=== PATIENT | female | born 2000 | race Caucasian/White ===

== ENCOUNTER 2024-10-31 22:42 | Observation (INO) | payer MEDICAID ==
[2024-10-31] MEDS ORDERED: Morphine 2 MG/ML SYRINGE ONE (23:39)
[2024-10-31] MEDS ORDERED: Lactated Ringers 1,000 ML IV SCH (23:45)
[2024-11-01] MEDS: Lactated Ringers 1,000 ML IV ONE
[2024-11-01] MEDS: Morphine 2 MG/ML SYRINGE IVPUSH PRN ×2 (00:02→02:13)
[2024-11-01 00:12] LABS: BILIRUBIN,URINE NEGATIVE (NEGATIVE); COLOR,URINE YELLOW; GLUCOSE,URINE NEGATIVE (NEGATIVE); KETONES,URINE 40 mg/dL (NEGATIVE); LEUKOCYTE ESTERASE,URINE NEGATIVE (NEGATIVE); NITRITE,URINE NEGATIVE (NEGATIVE); OCCULT BLOOD,URINE TRACE-INTACT (NEGATIVE); PH,URINE 7.5 (5.0-8.0); PROTEIN,URINE NEGATIVE (NEGATIVE); UROBILINOGEN,URINE 0.2 EU/dL (<2.0)
[2024-11-01 00:15] LABS: APPEARANCE,URINE HAZY
[2024-11-01 00:16] LABS: BASOPHILS ABSOLUTE AUTO 0.02 K/uL (0.00-0.20); BASOPHILS PERCENT AUTO 0.2 % (0.0-1.0); EOSINOPHILS ABSOLUTE AUTO 0.06 K/uL (0.00-0.45); EOSINOPHILS PERCENT AUTO 0.5 % (0.0-6.0); HEMATOCRIT 32.5 % (37.0-47.0); HEMOGLOBIN 11.5 g/dL (12.0-16.0); IMMATURE GRAN ABSOLUTE AUTO 0.04 K/uL (0.00-0.05); IMMATURE GRAN PERCENT AUTO 0.3 % (0.0-0.4); LYMPHOCYTES ABSOLUTE AUTO 2.04 K/uL (1.00-4.80); LYMPHOCYTES PERCENT AUTO 17.1 % (24.0-44.0); MEAN CORPUSCULAR HEMOGLOBIN 30.2 pg (28.0-32.0); MEAN CORPUSCULAR HGB CONC 35.4 g/dL (32.0-36.0); MEAN CORPUSCULAR VOLUME 85.3 fL (83.0-99.0); MEAN PLATELET VOLUME 9.3 fL (9.4-12.3); MONOCYTES ABSOLUTE AUTO 0.67 K/uL (0.00-0.80); MONOCYTES PERCENT AUTO 5.6 % (0.0-8.0); NEUTROPHILS PERCENT AUTO 76.3 % (41.0-71.0); PLATELET COUNT,PLT 284 K/uL (150-400); RED BLOOD CELL COUNT 3.81 M/uL (4.10-5.30); WHITE BLOOD CELL COUNT,WBC 11.93 K/uL (3.9-11.3)
[2024-11-01 00:44] LABS: A/G RATIO 0.6 (0.9-1.6); ALBUMIN 2.8 g/dL (3.4-5.0); BILIRUBIN TOTAL 0.3 mg/dL (0.2-1.0); CARBON DIOXIDE,CO2 22.6 mmol/L (21.0-32.0); CREATININE 0.7 mg/dL (0.6-1.0); EST CRCL DRUG DOSING (CG) 118.01 mL/min; POTASSIUM,K 3.4 mmol/L (3.5-5.1); PROTEIN TOTAL,TP 7.2 g/dL (6.4-8.2)
[2024-11-01] MEDS ORDERED: Morphine 2 MG/ML SYRINGE IVPUSH PRN (01:23)
[2024-11-01] MEDS: Ondansetron 4 MG/2 ML SDV IVPUSH PRN (02:13)
[2024-11-01] MEDS ORDERED: Naloxone 0.4 MG/ML SDV IVPUSH PRN (06:43)
[2024-11-01] MEDS: Promethazine 25 MG/ML SDV IM PRN (07:17)
[2024-11-01] MEDS: Meperidine PF 25 MG/ML SDV IM SCH ×2 (07:59→14:11)
[2024-11-01] MEDS: Tamsulosin 0.4 MG Cap.ER PO SCH (11:37)
[2024-11-01] MEDS: Lactated Ringers 1,000 ML IV SCH (18:35)
[2024-11-02] MEDS ORDERED: Ondansetron 4 MG Tab PO PRN (11:09)
[2024-11-02] MEDS ORDERED: Acetaminophen/oxyCODONE 325-5 MG Tab PO PRN (11:09)
[2024-11-02] MEDS ORDERED: Glucagon,Human Recombinant 1 MG Vial IM PRN (11:13)
[2024-11-02] MEDS ORDERED: 50% Dextrose in Water 50 ML Syringe IVPUSH PRN (11:13)
[2024-11-02] MEDS ORDERED: Insulin Regular in 0.9 % NACL 100 ML IV SCH (11:15)
[2024-11-02] MEDS ORDERED: Dextrose 5%-Lactated Ringers 1,000 ML IV SCH (11:30)
== END 2024-11-02 13:47 | disposition home or self-care (01) ==
LOC: MW.OBCHECK 22:42 → MW.OB 22:42 → MW.OBCHECK 23:44
PROVIDERS: ADMIT Obstetrics & Gynecology; ATTEND Obstetrics & Gynecology
DX: O26.832 Pregnancy related renal disease, second trimester (principal); N23 Unspecified renal colic; Z3A.25 25 weeks gestation of pregnancy
CPT/HCPCS: 36415; 59025; 76705; 76770; 76815; 76856; 80053; 81003; 82365; 85025; 96361; 96372; 96374; 96375; 96376; A9270; G0378; J2175; J2270; J2405; J2550; J7120

== ENCOUNTER 2025-01-26 05:03 | Inpatient (IN) | payer MEDICAID ==
[2025-01-26] MEDS ORDERED: Sodium Chloride 0.9% 2.5 ML Syringe FLUSH PRN (05:12)
[2025-01-26] MEDS ORDERED: Sodium Chloride 0.9% 10 ML Syringe FLUSH PRN (05:12)
[2025-01-26] MEDS ORDERED: Carboprost Tromethamine 250 MCG/1 mL Vial IM PRN (05:12)
[2025-01-26] MEDS ORDERED: Methylergonovine 0.2 MG/1 ML Amp IM PRN (05:12)
[2025-01-26] MEDS ORDERED: Lidocaine 1% 50 ML MDV INJECT PRN (05:12)
[2025-01-26] MEDS ORDERED: Misoprostol 200 MCG Tab RECTAL PRN (05:12)
[2025-01-26] MEDS ORDERED: Water For Irrigation,Sterile 1,000 ML Container IRR PRN (05:12)
[2025-01-26] MEDS ORDERED: Ondansetron 4 MG/2 ML SDV IVPUSH PRN (05:12)
[2025-01-26] MEDS ORDERED: Terbutaline 1 MG/ML SDV SUBCUT PRN ×2 (05:12→15:18)
[2025-01-26] MEDS ORDERED: Sodium Chloride 0.9% 20 ML SDV IV PRN (05:12)
[2025-01-26] MEDS ORDERED: Butorphanol 1 MG/ML SDV IVPUSH PRN (05:12)
[2025-01-26] MEDS ORDERED: Oxytocin/0.9 % Sodium Chloride 30 UNIT/500 ML BAG IV SCH ×2 (05:15→15:30)
[2025-01-26] MEDS: VANCOmycin 2 GM in Sodium Chloride 0.9% 500 ML IV SCH (05:52)
[2025-01-26 05:54] LABS: HEMOGLOBIN 9.8 g/dL (12.0-16.0); MEAN CORPUSCULAR HEMOGLOBIN 26.8 pg (28.0-32.0); MEAN CORPUSCULAR HGB CONC 32.7 g/dL (32.0-36.0); MEAN CORPUSCULAR VOLUME 82.2 fL (83.0-99.0); MEAN PLATELET VOLUME 11.1 fL (9.4-12.3); PLATELET COUNT,PLT 235 K/uL (150-400); RED BLOOD CELL COUNT 3.65 M/uL (4.10-5.30); WHITE BLOOD CELL COUNT,WBC 8.33 K/uL (3.9-11.3)
[2025-01-26] MEDS: Misoprostol 25 MCG (1/4 of 100 MCG) Tab VAG PRN ×2 (05:58→10:10)
[2025-01-26 06:59] LABS: A/G RATIO 0.6 (0.9-1.6); ALBUMIN 2.2 g/dL (3.4-5.0); BILIRUBIN TOTAL 0.2 mg/dL (0.2-1.0); CALCIUM 8.8 mg/dL (8.5-10.1); CARBON DIOXIDE,CO2 21.4 mmol/L (21.0-32.0); CREATININE 0.7 mg/dL (0.6-1.0); EST CRCL DRUG DOSING (CG) 117.01 mL/min; POTASSIUM,K 3.8 mmol/L (3.5-5.1); PROTEIN TOTAL,TP 5.9 g/dL (6.4-8.2)
[2025-01-26 07:25] LABS: APPEARANCE,URINE CLEAR; BILIRUBIN,URINE NEGATIVE (NEGATIVE); COLOR,URINE YELLOW; GLUCOSE,URINE NEGATIVE (NEGATIVE); KETONES,URINE NEGATIVE (NEGATIVE); LEUKOCYTE ESTERASE,URINE TRACE (NEGATIVE); NITRITE,URINE NEGATIVE (NEGATIVE); OCCULT BLOOD,URINE NEGATIVE (NEGATIVE); PH,URINE 5.5 (5.0-8.0); PROTEIN,URINE NEGATIVE (NEGATIVE); UROBILINOGEN,URINE 0.2 EU/dL (<2.0)
[2025-01-26] MEDS: diphenhydrAMINE 50 MG Cap PO SCH (13:38)
[2025-01-26] MEDS ORDERED: Misoprostol 25 MCG (1/4 of 100 MCG) Tab VAG PRN (15:18)
[2025-01-26] MEDS: Lactated Ringers 1,000 ML IV SCH (15:40)
[2025-01-26] MEDS: Oxytocin/0.9 % Sodium Chloride 30 UNIT/500 ML BAG IV SCH (15:45)
[2025-01-26] MEDS ORDERED: Bupivacaine 0.5% 10 ML SDV ONE (17:15)
[2025-01-26] MEDS ORDERED: dexmedeTOMIDine HCl 200 MCG/2 ML SDV ONE (17:15)
[2025-01-26] MEDS ORDERED: Phenylephrine HCl In 0.9% NaCl 1 MG/10 ML Syringe ONE (17:16)
[2025-01-26] MEDS ORDERED: Ropivacaine HCl/PF 200 ML ONE (17:16)
[2025-01-26] MEDS ORDERED: ePHEDrine 50 MG/ML SDV IVPUSH PRN (17:37)
[2025-01-26] MEDS ORDERED: Phenylephrine HCl In 0.9% NaCl 1 MG/10 ML Syringe IVPUSH PRN (17:37)
[2025-01-26] MEDS ORDERED: dexmedeTOMIDine HCl 200 MCG/2 ML SDV EPIDUR SCH (17:45)
[2025-01-26] MEDS: Ropivacaine HCl/PF 400 MG in Premix Bag 1 BAG EPIDUR SCH (17:53)
[2025-01-27] MEDS: Tranexamic Acid in NACL,ISO-OS 1,000 MG in Premix Bag 1 BAG IV ONE (03:21)
[2025-01-27] MEDS ORDERED: oxyCODONE 5 MG Tab PO PRN (03:29)
[2025-01-27] MEDS ORDERED: Aluminum Hydroxide/Magnesium Hydroxide/Simethicone Susp 30 ML Cup PO PRN (03:29)
[2025-01-27 03:54] LABS: PH,UMBILICAL ARTERIAL 7.37 (7.18-7.38); PH,UMBILICAL VENOUS 7.38 (7.25-7.45)
[2025-01-27] MEDS: Witch Hazel Medicated Pads 40/Jar TOP PRN (05:54)
[2025-01-27] MEDS: Benzocaine/Menthol 20%-0.5% Spray 78 GM Cannister TOP PRN (05:54)
[2025-01-27] MEDS: Lanolin 100% Cream 7 GM Tube TOP PRN (05:54)
[2025-01-27] MEDS: Ibuprofen 800 MG Tab PO PRN (05:54)
[2025-01-27 07:39] LABS: HEMOGLOBIN 9.3 g/dL (12.0-16.0); MEAN CORPUSCULAR HEMOGLOBIN 27.4 pg (28.0-32.0); MEAN CORPUSCULAR HGB CONC 33.2 g/dL (32.0-36.0); MEAN CORPUSCULAR VOLUME 82.4 fL (83.0-99.0); MEAN PLATELET VOLUME 10.9 fL (9.4-12.3); PLATELET COUNT,PLT 221 K/uL (150-400); WHITE BLOOD CELL COUNT,WBC 14.62 K/uL (3.9-11.3)
[2025-01-27 07:58] LABS: ALBUMIN 1.8 g/dL (3.4-5.0); BILIRUBIN TOTAL 0.3 mg/dL (0.2-1.0); CALCIUM 8.6 mg/dL (8.5-10.1); CARBON DIOXIDE,CO2 20.4 mmol/L (21.0-32.0); CREATININE 0.7 mg/dL (0.6-1.0); EST CRCL DRUG DOSING (CG) 117.01 mL/min; POTASSIUM,K 3.6 mmol/L (3.5-5.1); PROTEIN TOTAL,TP 5.8 g/dL (6.4-8.2)
[2025-01-27 07:59] LABS: A/G RATIO 0.5 (0.9-1.6)
[2025-01-27] MEDS: Docusate Sodium 100 MG Cap PO PRN (09:11)
[2025-01-27] MEDS: Acetaminophen 500 MG Tab PO PRN (09:15)
[2025-01-28 05:51] LABS: HEMATOCRIT 25.1 % (37.0-47.0); HEMOGLOBIN 8.2 g/dL (12.0-16.0)
== END 2025-01-28 14:05 | disposition home or self-care (01) | DRG 807 ==
LOC: MW.OB 05:03 → OBSVTOIN 01-27 03:03 → MW.OB 01-27 05:48
PROVIDERS: ADMIT Obstetrics & Gynecology; ATTEND Obstetrics & Gynecology
PROC: 10E0XZZ Delivery of Products of Conception, External Approach (ICD-10-PCS; principal; 2025-01-27)
PROC: 0KQM0ZZ Repair Perineum Muscle, Open Approach (ICD-10-PCS; 2025-01-27)
PROC: 3E0DXGC Introduction of Other Therapeutic Substance into Mouth and Pharynx, External Approach (ICD-10-PCS; 2025-01-27)
PROC: 10907ZC Drainage of Amniotic Fluid, Therapeutic from Products of Conception, Via Natural or Artificial Opening (ICD-10-PCS; 2025-01-27)
PROC: 3E0R3BZ Introduction of Anesthetic Agent into Spinal Canal, Percutaneous Approach (ICD-10-PCS; 2025-01-27)
PROC: 00HU33Z Insertion of Infusion Device into Spinal Canal, Percutaneous Approach (ICD-10-PCS; 2025-01-27)
DX: O13.4 Gestational [pregnancy-induced] hypertension without significant proteinuria, complicating childbirth (principal); Z3A.38 38 weeks gestation of pregnancy; Z37.0 Single live birth; O99.824 Streptococcus B carrier state complicating childbirth; O70.1 Second degree perineal laceration during delivery
CPT/HCPCS: 01967; 36415; 51702; 59025; 59409; 80053; 81003; 82803; 84550; 85014; 85018; 85027; 86592; 86850; 86900; 86901; A9270-GY; J0665; J2590; J2795; J7040; J7120

== ENCOUNTER 2025-07-12 10:00 | Emergency (ER) | payer BC, MEDICAID ==
[2025-07-12] MEDS ORDERED: Sodium Chloride 0.9% 10 ML Syringe FLUSH PRN (10:18)
[2025-07-12] MEDS ORDERED: Sodium Chloride 0.9% 2.5 ML Syringe FLUSH PRN (10:18)
[2025-07-12] MEDS: Ketorolac 30 MG/ML SDV IVPUSH ONE (10:44)
[2025-07-12] MEDS: Ondansetron 4 MG/2 ML SDV IVPUSH ONE (10:44)
[2025-07-12 10:53] LABS: BASOPHILS ABSOLUTE AUTO 0.04 K/uL (0.00-0.20); BASOPHILS PERCENT AUTO 0.4 % (0.0-1.0); EOSINOPHILS ABSOLUTE AUTO 0.07 K/uL (0.00-0.45); EOSINOPHILS PERCENT AUTO 0.7 % (0.0-6.0); IMMATURE GRAN ABSOLUTE AUTO 0.02 K/uL (0.00-0.05); IMMATURE GRAN PERCENT AUTO 0.2 % (0.0-0.4); LYMPHOCYTES ABSOLUTE AUTO 2.27 K/uL (1.00-4.80); LYMPHOCYTES PERCENT AUTO 22.5 % (24.0-44.0); MEAN PLATELET VOLUME 8.6 fL (9.4-12.3); MONOCYTES ABSOLUTE AUTO 0.58 K/uL (0.00-0.80); MONOCYTES PERCENT AUTO 5.7 % (0.0-8.0); NEUTROPHILS ABSOLUTE AUTO 7.13 K/uL (1.80-7.70); NEUTROPHILS PERCENT AUTO 70.5 % (41.0-71.0); NRBC ABSOLUTE 0.00 K/uL (0.00-0.02); NRBC PERCENT 0.0 /100WBC (0.0-0.2); PLATELET COUNT,PLT 287 K/uL (150-400); RED BLOOD CELL COUNT 4.65 M/uL (4.10-5.30); WHITE BLOOD CELL COUNT,WBC 10.11 K/uL (3.9-11.3)
[2025-07-12 11:17] LABS: APPEARANCE,URINE CLEAR; GLUCOSE,URINE NEGATIVE (NEGATIVE); OCCULT BLOOD,URINE NEGATIVE (NEGATIVE)
[2025-07-12 11:20] LABS: A/G RATIO 0.8 (0.9-1.6); ALANINE AMINOTRANSFERASE,ALT 46.0 IU/L (14-63); ASPARTATE AMNIOTRANSFERASE,AST 21.0 IU/L (15-37); BILIRUBIN TOTAL 0.2 mg/dL (0.2-1.0); BLOOD UREA NITROGEN,BUN 21.0 mg/dL (7.0-18.0); CARBON DIOXIDE,CO2 21.2 mmol/L (21.0-32.0); CHLORIDE,CL 102.0 mmol/L (98-107); CREATININE 0.9 mg/dL (0.6-1.0); EST CRCL DRUG DOSING (CG) 91.01 mL/min; GLUCOSE RANDOM 117.0 mg/dL (74-106); POTASSIUM,K 3.8 mmol/L (3.5-5.1); PROTEIN TOTAL,TP 7.9 g/dL (6.4-8.2); SODIUM,NA 137.0 mmol/L (136-145)
[2025-07-12 11:25] LABS: ESTIMATED GFR 92.0 mL/min (>60)
[2025-07-12 11:26] LABS: EPITHELIAL CELLS,URINE FEW (NONE-FEW)
== END 2025-07-12 13:20 | disposition home or self-care (01) ==
LOC: MW.ED 10:00
DX: N13.2 Hydronephrosis with renal and ureteral calculous obstruction (principal); Z88.0 Allergy status to penicillin; Z79.899 Other long term (current) drug therapy; Z75.3 Unavailability and inaccessibility of health-care facilities
CPT/HCPCS: 36415; 74176; 80053; 81001; 81025; 83690; 85025; 93005; 96361; 96374; 96375; 99284; J1885; J2405; J7030; 93010